=== PATIENT | male | born 1950 | race Two or more races ===

== ENCOUNTER 2019-09-23 00:59 | Emergency (ER) | payer MEDICARE, MEDICAID ==
[~2019-09-23] VITALS: Ht 177.8 cm; Wt 65.8 kg
[2019-09-23 00:59] VITALS: BP 156/97
[2019-09-23] MEDS ORDERED: LOPERAMIDE 2 MG/10ml ORAL soln PO ONE (02:45)
[2019-09-23] MEDS ORDERED: LOPERAMIDE HCL 2 MG CAP PO ONE (03:15)
[2019-09-23 03:24] LABS: Basophils # (auto) 0.1 uL; Hemoglobin 16.5 g/dL (13.5-17.5); Monocytes # (auto) 0.8 uL; Monocytes % (auto) 7.5 % (0.0-12.0); Neutrophils # (auto) 9.5 uL; Nucleated Red Blood Cells % 0.1 %
[2019-09-23 03:26] LABS: Basophils % (auto) 0.6 % (0.0-2.0); Eosinophils # (auto) 0.1 uL; Eosinophils % (auto) 0.5 % (0.0-7.0); Hematocrit 48.4 % (41.0-53.0); Lymphocytes # (auto) 0.8 uL; Lymphocytes % (auto) 7.2 % (10.0-50.0); Mean Corpuscular Hemoglobin 34.6 pg (28.0-32.0); Mean Corpuscular Hgb Conc. 34.1 g/dL (32.0-36.0); Mean Corpuscular Volume 101.5 fL (80.0-100.0); Neutrophils % (auto) 84.2 % (37.0-80.0); Platelet Count (auto) 303 10^3/uL (140-450); Red Blood Cells 4.77 10^6/uL (4.5-5.90); Red Cell Distribution Width 12.2 % (11.8-14.3); White Blood Cell 11.3 10^3/uL (4.4-10.8)
[2019-09-23] MEDS ORDERED: LORazepam 2MG/ML-1ML VIAL IM ONE (03:30)
[2019-09-23 03:36] LABS: Albumin 3.8 g/dL (3.4-5.0); Calcium 10.8 mg/dL (8.5-10.1); Potassium 4.4 mmol/L (3.5-5.1)
[2019-09-23 03:39] LABS: BUN/Creatinine Ratio 15.4
[2019-09-23 03:42] LABS: Total Protein 8.5 g/dL (6.4-8.2)
[2019-09-23 04:29] LABS: Urine Bacteria FEW /hpf (None Seen); Urine Blood 2+ /uL (Negative); Urine Hyaline Cast MOD /lpf (0 - 2); Urine Mucus FEW (None Seen); Urine WBC 3 /hpf (0 - 3)
[2019-09-23 05:19] LABS: Alcohol, Urine < 3.0 mg/dL (0-5); Amphetamine Screen, Urine POSITIVE (NEGATIVE); Barbiturate Scree,Urine NEGATIVE (NEGATIVE); Benzodiazephine Screen, Urine NEGATIVE (NEGATIVE); Cannabinoid Screen, Urine NEGATIVE (NEGATIVE); Cocaine Screen, Urine NEGATIVE (NEGATIVE); Opiate Scree,Urine NEGATIVE (NEGATIVE); Phencyclidine Screen, Urine NEGATIVE (NEGATIVE)
== END 2019-09-23 04:26 | disposition home or self-care (01) ==
LOC: EDBD 00:59 → ER 01:07
DX: F15.10 Other stimulant abuse, uncomplicated (principal); R19.7 Diarrhea, unspecified
CPT/HCPCS: 36415; 80053; 80307; 81001; 85025; 99283; J2060

== ENCOUNTER 2020-04-17 15:02 | Emergency (ER) | payer MEDICARE, MEDICAID ==
[~2020-04-17] VITALS: Ht 175.3 cm; Wt 63.5 kg
[2020-04-17 15:31] VITALS: BP 137/99
[2020-04-17] MEDS ORDERED: MUPIROCIN 2% OINT 15gm or 22gm TOP ONE (16:00)
[2020-04-17] MEDS ORDERED: BACITRACIN TOP OINT 1 UD PKG TOP ONE ×2 (16:06→16:15)
[2020-04-17] MEDS ORDERED: TETANUS-DIPTH-ACEL PERTUSSIS 0.5ML SYR Tdap IM ONE (16:15)
== END 2020-04-17 16:17 | disposition home or self-care (01) ==
LOC: ER 15:02
DX: S61.412A Laceration without foreign body of left hand, initial encounter (principal); I10 Essential (primary) hypertension; Z95.1 Presence of aortocoronary bypass graft; W26.9XXA Contact with unspecified sharp object(s), initial encounter; Y93.89 Activity, other specified; Y92.89 Other specified places as the place of occurrence of the external cause; Y99.8 Other external cause status
CPT/HCPCS: 12001; 90471; 90715